=== PATIENT | male | born 1995 | race Caucasian/White ===

== ENCOUNTER → 2017-03-27 | Outpatient (CLI) | payer OTHER ==
[~2017-03-27] MED LIST: MORPHINE SULFATE 30 MG/30 ML PCA IV ONE
== END ==
LOC: HEDF 05:32
DX: T24.202A Burn of second degree of unspecified site of left lower limb, except ankle and foot, initial encounter (principal); T24.201A Burn of second degree of unspecified site of right lower limb, except ankle and foot, initial encounter; T31.10 Burns involving 10-19% of body surface with 0% to 9% third degree burns; S79.821A Other specified injuries of right thigh, initial encounter; V29.49XA Motorcycle driver injured in collision with other motor vehicles in traffic accident, initial encounter; Y92.410 Unspecified street and highway as the place of occurrence of the external cause
CPT/HCPCS: A0431; A0436; J2270